=== PATIENT | male | born 1990 | race Two or more races ===

== ENCOUNTER 2022-12-14 01:14 | Emergency (ER) | payer BC ==
[~2022-12-14] VITALS: Ht 165.1 cm; Wt 90.7 kg
[2022-12-14] MEDS ORDERED: ZESTRIL5 MG PO (01:19)
== END 2022-12-14 03:09 | disposition home or self-care (01) ==
LOC: ER 01:14
DX: H66.93 Otitis media, unspecified, bilateral (principal)